=== PATIENT | male | born 1985 | race African-American/Black ===

== ENCOUNTER 2019-04-27 00:38 | Emergency (ER) | payer MEDICAID ==
[~2019-04-27] VITALS: Ht 170.2 cm; Wt 74.8 kg
--- NOTE | 2019-04-27 00:38 | NUR ---
PT BIB [facility], PREBOOK. TAKEN TO BED 3
[2019-04-27 00:39] VITALS: BP 138/99
--- NOTE | 2019-04-27 00:40 | NUR ---
39 Y/O MALE BIBA BLS FOR PREBOOK. PER [facility], PATIENT WAS PULLED OVER FOR A DUI AND POSSESSION OF DRUGS (METH, COCAINE, AND ECSTASY), ACTING ERRATICALLY AND PRETENDED TO HAVE SEIZURES AT THE TIME OF ARREST. GCS 12; PERRL +3; 95% ON RA. [facility] AT BEDSIDE. ERMD MADE AWARE OF STATUS. SIDE RAILX2. PMH:UNKNOWN RX:UNKNOWN ALLERGIES:UNOBTAINABLE
--- NOTE | 2019-04-27 00:56 | NUR ---
Dr. Tovar examining patient.
[2019-04-27 01:43] VITALS: BP 138/99
--- NOTE | 2019-04-27 01:43 | NUR ---
DPatient discharged with v/s stable. Written and verbal after care instructions given and explained. Patient verbalized understanding. Police with steady gait. All questions addressed prior to discharge. Advised to follow up with [facility].
--- NOTE | 2019-04-27 01:44 | NUR ---
BLOOD DRAWN PER [facility] REQUEST. CONSENT FORM FOR BLOOD DRAW SIGNED BY PT. BLOOD SENT WITH P OFFICERS.
== END 2019-04-27 01:43 ==
LOC: MED 00:38 → EDBD 00:38 → MED 01:43
DX: Z76.5 Malingerer [conscious simulation] (principal); Z02.89 Encounter for other administrative examinations; F17.210 Nicotine dependence, cigarettes, uncomplicated; Z86.69 Personal history of other diseases of the nervous system and sense organs
CPT/HCPCS: 99283